=== PATIENT | male | born 1965 | race Caucasian/White ===

== ENCOUNTER 2016-04-07 09:04 | Emergency (ER) | payer SELFPAY ==
[2016-04-07 09:14] VITALS: TEMP 98; BMI 29.2
[2016-04-07 11:03] VITALS: BP 152/104; PULSE 88
--- NOTE | 2016-04-07 11:20 | EDPRACDOC ---
- General Information Chief Complaint: Medication Refill Stated Complaint: MEDICATION REFILL Time Seen by Provider: 04/07/16 11:11 Mode Of Arrival: Car Home Medications: Home Medications Escitalopram Oxalate [Lexapro] 10 mg PO DAILY 09/27/12 Allergies/Adverse Reactions: Allergies Allergy/AdvReac Type Severity Reaction Status Date / Time No Known Allergies Allergy Verified 04/07/16 09:14 - History of Present Illness Duration Without Medication: TODAY HPI: Pt states he is out of xanax x 1 day and needs a refill. Pt states his left him and have "too a whole bunch at one time" and PCP is out of town and h cant get refill. I informed pt that the ED doesn't refill chronic anxiety or pain medication that is must be through PCP. Due to his recent abuse/overdose he would not be getting a refill from the ED. Pt states he doesn't need to be here and left. Context: Reports: Ran out of Medication Medication for: Reports: Psychiatric Pain: Reports: None ED Past Medical History - History Reviewed Yes Nurses notes reviewed and agree except as marked - Patient Medical History Psychological History: Reports: Depression, Substance Use Disorder (Alcohol) - Social Medical History Smoking Status: Heavy tobacco smoker (5 or more cigarettes/day or daily pipe/ cigar) Social History: Reports: Substance Use Disorder (Alcohol) EDM Review of Systems - Review of Systems Constitutional: No Symptoms Reported. negative: Fever, Chills, Weakness, Fatigue, Loss of Appetite Respiratory: No Symptoms Reported. negative: Cough, Brassy Cough, Barky Cough, Shortness of Breath, Wheezing, Hemoptysis Cardiovascular: No Symptoms Reported. negative: Chest Pain, Palpitations, Syncope, Edema, Orthopnea, PND, Skin Mottling, Cyanosis Gastrointestinal: No Symptoms Reported. negative: Pain, Constipation, Nausea, Vomiting, Diarrhea, Melena, Formula Intolerance Neurological: No Symptoms Reported. negative: Headache, Dizziness, Seizure, Numbness, Weakness, Speech Difficulty, Gait Difficulty Integumentary: No Symptoms Reported. negative: Itching, Rash, Bruising, Wound Psychiatric: Anxiety - Physical Exam Constitutional: No apparent distress, Alert Oriented to: Time, Person, Place Last recorded Vital Signs: Last Vital Signs Temp 98.0 F 04/07/16 09:09 Pulse 88 04/07/16 11:02 Resp 18 04/07/16 11:02 BP 152/104 H 04/07/16 11:02 Pulse Ox 97 04/07/16 11:02 Oxygen Pulse Oxygen Saturation 97 O2 Device Room Air Oxygen Flow Rate Fraction of Inspired Oxygen ( FIO2) - HEENT Head: Normal ( normocephalic) - Respiratory/Cardiovascular Respiratory: Normal - CTA (BBS clear to auscultation without adventitious sounds ) Cardiovascular: Normal (RRR without murmur, gallop or rub) - Integumentary Skin: Normal, Warm, Dry - Neurologic Memory Impaired: Normal Motor Function: Normal (Normal tone, Pulses 2+ No cyanosis or edema, FROM) Mood Description: Normal Perception: Normal - Differential Diagnosis Medication Refill - Additional Information Pt left prior to receiving paper work for discharge Decision Time to Discharge: 11:16 - Departure Disposition: Home Condition: Good Final Diagnosis: Medication refill Instructions: Medication Refill Education/Counseling Given To: Patient Education/Counseling Given Regarding: Diagnosis, Treatment, Follow Up Referrals: Hayley Galeas [employer] [Primary Care Provider] - One Week Forms: Primary / Family Care Contact Additional Instructions: Follow up with Personal MD for further refills of medication.
== END 2016-04-07 11:20 | disposition home or self-care (01) ==
LOC: ED 09:04 → EDMC 11:20
DX: Z76.0 Encounter for issue of repeat prescription (principal); F41.9 Anxiety disorder, unspecified
CPT/HCPCS: 99282

== ENCOUNTER 2016-04-08 15:50 | Observation (INO) | payer SELFPAY ==
[2016-04-08 16:15] VITALS: BMI 30.1
[2016-04-08 16:39] LABS: AUTOMATED BASOPHIL 0.7 % (0-2); AUTOMATED LYMPH 19.4 % (17-44); AUTOMATED MONOCYTE 5.7 % (3-10); AUTOMATED NEUTROPHIL 72.2 % (45-76); MPV 9.4 fL (7.4-10.4)
[2016-04-08 16:52] LABS: BLOOD UREA NITROGEN 12 MG/DL (9-20); CALCIUM 9.1 MG/DL (8.4-10.2); CALCULATED OSMOLALITY 259 MOs/Kg (270-290); CHLORIDE 102 mEq/L (98-107); ETOH-MGDL 149 mg/dL; GLUCOSE 77 MG/DL (70-99); SODIUM LEVEL 135 mEq/L (137-146); TOTAL PROTEIN 7.2 G/DL (6.3-8.2)
[2016-04-08 17:21] LABS: ALL NEG? NO
[2016-04-08] MEDS ORDERED: LORAZEPAM 1 MG TAB PO PRN (17:36)
[2016-04-08] MEDS ORDERED: IBUPROFEN 400 MG TAB PO PRN (17:36)
[2016-04-08] MEDS ORDERED: ACETAMINOPHEN 325 MG/TAB TABLET PO PRN (17:36)
[2016-04-08] MEDS ORDERED: ONDANSETRON HCL 4 MG ODT TAB PO PRN (17:36)
--- NOTE | 2016-04-08 17:36 | EDPRACDOC ---
- General Information Chief Complaint: Psychiatric Illness Stated Complaint: IVC Time Seen by Provider: 04/08/16 16:28 Information Source: Patient, Police Mode of Arrival: Law Enforcement Home Medications: Home Medications Alprazolam [Xanax] 1 mg PO TID PRN 04/08/16 Duloxetine [Cymbalta] 60 mg PO BID 04/08/16 Allergies/Adverse Reactions: Allergies Allergy/AdvReac Type Severity Reaction Status Date / Time No Known Allergies Allergy Verified 04/08/16 16:08 - History of Present Illness Onset: Unknown HPI: Patient will not give me any information, states I need to "read his chart" and asks "what the fuck you think I'm here for". Patient is IVC. Reportedly patient did not get his pain medication filled at his PCP office and reported SI at that time. Suicidal Plan: Reports: Other Suicidal Attempt: Reports: Other - Treatment Prior to ED Arrival Reported Medications/Treatment [employer] Medications [employer]ILD [employer]ELFARE [employer]OR (Medication/ xanax 1 mg -2 tabs -pt unsure of time Dose/Time) Patient states he took "a bunch of pain pills". Patient unsure of what type and how much he took . ED Past Medical History - History Reviewed Yes Nurses notes reviewed and agree except as marked - Patient Medical History Psychological History: Reports: Depression, Anxiety, Substance Use Disorder ( Alcohol) Systemic History: Denies: Cancer Surgical History: Reports: Appendectomy - Social Medical History Smoking Status: Heavy tobacco smoker (5 or more cigarettes/day or daily pipe/ cigar) Social History: Reports: Substance Use Disorder (Alcohol) EDM Review of Systems - Review of Systems ROS Negative Except as Marked: Yes All systems reviewed and were negative except as marked ROS Unobtainable: Yes Review of systems cannot be obtained due to the patient's medical condition (Patient refuses to answer questions) - Physical Exam Constitutional: Alert (Awake), No apparent distress Oriented to: Time, Person, Place Last recorded Vital Signs: Last Vital Signs Temp 97.9 F 04/08/16 16:08 Pulse 82 04/08/16 16:08 Resp 18 04/08/16 16:08 BP 105/71 04/08/16 16:08 Pulse Ox 96 04/08/16 16:08 Oxygen Pulse Oxygen Saturation 96 O2 Device Oxygen Flow Rate Fraction of Inspired Oxygen ( FIO2) - HEENT Head: Normal ( normocephalic) Neck: Normal (FROM, trachea at midline) - Respiratory/Cardiovascular Respiratory: Normal - CTA (BBS clear to auscultation without adventitious sounds ) Cardiovascular: Normal (RRR without murmur, gallop or rub) Initial Evaluation Apperance: Casual Attitude: Hostile Recommend /or Refer: Involuntary Commitment (Patient is IVC by someone else) - Results 04/08/16 16:28 04/08/16 16:28 WBC 14.2 xk/uL (3.8-10.8) H 04/08/16 16:28 RBC 4.97 xM/uL (4.70-6.10) 04/08/16 16:28 Hgb 15.9 g/dL (14.0-18.0) 04/08/16 16:28 Hct 46.6 % (42-52) 04/08/16 16:28 MCV 94 fL (80-94) 04/08/16 16:28 MCH 32.0 pg (27-32) 04/08/16 16:28 MCHC 34.1 g/dl (33-36) 04/08/16 16:28 RDW 13.1 % (11.5-14.5) 04/08/16 16:28 Plt Count 183 xk/uL (130-400) 04/08/16 16:28 MPV 9.4 fL (7.4-10.4) 04/08/16 16:28 Neut % (Auto) 72.2 % (45-76) 04/08/16 16:28 Lymph % (Auto) 19.4 % (17-44) 04/08/16 16:28 [place] % (Auto) 5.7 % (3-10) 04/08/16 16:28 Eos % (Auto) 2.0 % (0-5) 04/08/16 16:28 Baso % (Auto) 0.7 % (0-2) 04/08/16 16:28 Absolute Neuts (auto) 10.22 xk/uL (1.7-8.2) H 04/08/16 16:28 Absolute Lymphs (auto) 2.70 xk/uL (0.65-4.75) 04/08/16 16:28 Sodium 135 mEq/L (137-146) L 04/08/16 16:28 Potassium 3.9 mEq/L (3.5-5.1) 04/08/16 16:28 Chloride 102 mEq/L (98-107) 04/08/16 16:28 Carbon Dioxide 18 mMOL/L (22-33) L 04/08/16 16:28 Anion Gap 19 mEq/L (8-16) H 04/08/16 16:28 BUN 12 MG/DL (9-20) 04/08/16 16:28 Creatinine 0.90 MG/DL (0.66-1.25) 04/08/16 16:28 Estimated GFR (MDRD) > 60 mL/min (>=60) 04/08/16 16:28 Glucose 77 MG/DL (70-99) 04/08/16 16:28 Calculated Osmolality 259 MOs/Kg (270-290) L 04/08/16 16:28 Calcium 9.1 MG/DL (8.4-10.2) 04/08/16 16:28 Total Bilirubin 0.5 MG/DL (0.2-1.3) 04/08/16 16:28 AST 28 IU/L (17-59) 04/08/16 16:28 ALT 47 IU/L (21-72) 04/08/16 16:28 Alkaline Phosphatase 64 IU/L (38-126) 04/08/16 16:28 Total Protein 7.2 G/DL (6.3-8.2) 04/08/16 16:28 Albumin 4.1 G/DL (3.5-5.0) 04/08/16 16:28 Plasma/Serum Ethyl Alc 0.15 % (<0.01) H 04/08/16 16:28 Lab Results 04/08/16 04/08/16 16:28 16:28 WBC 14.2 H RBC 4.97 Hgb 15.9 Hct 46.6 MCV 94 MCH 32.0 MCHC 34.1 RDW 13.1 Plt Count 183 MPV 9.4 Neut % (Auto) 72.2 Lymph % (Auto) 19.4 [place] % (Auto) 5.7 Eos % (Auto) 2.0 Baso % (Auto) 0.7 Absolute Neuts (auto) 10.22 H Absolute Lymphs (auto) 2.70 Sodium 135 L Potassium 3.9 Chloride 102 Carbon Dioxide 18 L Anion Gap 19 H BUN 12 Creatinine 0.90 Estimated GFR (MDRD) > 60 Glucose 77 Calculated Osmolality 259 L Calcium 9.1 Total Bilirubin 0.5 AST 28 ALT 47 Alkaline Phosphatase 64 Total Protein 7.2 Albumin 4.1 Plasma/Serum Ethyl Alc 0.15 H - Departure Disposition: Admit to Condition: Stable Final Diagnosis: IVC Referrals: None,No Provider [Primary Care Provider] - One Week
[2016-04-08 17:41] LABS: RBC/URINE 0-2 (0-2); WBC/URINE 0-2 (0-2)
[2016-04-08 17:42] LABS: LEUKOCYTES/URINE NEG (NEGATIVE); MDMA* NEG (NEGATIVE); METHAMPHETAMINES NEG (NEGATIVE); NITRITE/URINE NEG (NEGATIVE); OXYCODONE NEG (NEGATIVE); URINE OCCULT BLOOD NEG (NEG/TRACE)
[2016-04-08] MEDS ORDERED: NICOTINE 21 MG PATCH TOP SCH (18:00)
[2016-04-09 17:24] VITALS: BP 140/76; PULSE 67; TEMP 98.2
--- NOTE | 2016-04-09 17:47 | TUDEPART ---
Time Seen By Provider: 17:45 Discussion of OBS Stay: PATIENT ADMITTED TO THE EMERGENCY DEPARTMENT AN IVC YESTERDAY. WAS INVASIVE , AND WOULD NOT CALL COOPERATE WITH EXAMINATION OR HISTORY. OVERNIGHT THE PATIENT 'S VITAL SIGNS HAVE BEEN WITH NORMAL THERE BEEN NO SIGNS WITHDRAWAL. General: EVASIVE, NOT CONTRIBUTING TO QUESTIONS,] No acute distress. Neuro: Alert Oriented, calm and cooperative, NO TREMORS, NO SHAKING. HEENT: Normocephalic atraumatic. Sclerae nonicteric. Extraocular movements intact. Oral mucosa pink and moist. Neck: Supple. Nontender. Good range of motion. No masses. Trachea is midline. No cervical adenopathy. Lungs: Clear to auscultation. No rhonchi or wheezing. Heart: Regular rate and rhythm. No murmur. Abdomen: Soft, nontender, nondistended. No hepatosplenomegaly. No abdominal wall defects or masses. No guarding or rebound. Extremities: no cyanosis clubbing or edema. No palpable deformities. Skin: Warm and dry, no rashes APPEARS STABLE FOR [place]DEN OF TRANSPORT. Yes I personally saw and evaluated the patient. Condition: Stable Follow-up / Referrals: None,No Provider [Family Provider] - One Week - Physical Exam Constitutional: Alert (Awake), No apparent distress Oriented to: Time, Person, Place Last recorded Vital Signs: Last Vital Signs Temp 98.2 F 04/09/16 17:20 Pulse 67 04/09/16 17:20 Resp 20 04/09/16 17:20 BP 140/76 04/09/16 17:20 Pulse Ox 99 04/09/16 17:20 Oxygen Pulse Oxygen Saturation 99 O2 Device Room Air Oxygen Flow Rate Fraction of Inspired Oxygen ( FIO2) - HEENT Head: Normal ( normocephalic) - Respiratory/Cardiovascular Respiratory: Normal - CTA (BBS clear to auscultation without adventitious sounds ) Cardiovascular: Normal (RRR without murmur, gallop or rub)
== END 2016-04-09 17:25 ==
LOC: ED 15:50 → EDINP 17:36 → TUOBSINP 18:52
PROVIDERS: ADMIT Physician Assistant; ATTEND Physician Assistant
DX: Z04.6 Encounter for general psychiatric examination, requested by authority (principal); F17.210 Nicotine dependence, cigarettes, uncomplicated
CPT/HCPCS: 36415; 80053; 80307; 81001; 85025; 86592; 99284; G0378; J3490